=== PATIENT | male | born 1965 | race Caucasian/White ===

== ENCOUNTER → 2018-04-21 11:35 | Outpatient (CLI) | payer OTHER, SELFPAY ==
[2018-04-21 14:15] LABS: Vitamin D,25 Hydroxy 30.1 ng/mL (29.95-100.01)
[2018-04-21 14:22] LABS: AST(SGOT) 23 U/L (15-37); Alanine Aminotransfer ALT/SGPT 57 U/L (16-61); Albumin, Serum 3.8 g/dL (3.2-5.0); Alkaline Phosphatase 72 U/L (45-117); Anion Gap 9 (5-15); BUN 12 mg/dL (7-18); BUN/Creat Ratio 16.1 RATIO (10-20); Calcium,Total 8.5 mg/dL (8.5-10.1); Chloride 107 mmol/L (98-107); Cholesterol 187 mg/dL (200); Creatinine, Serum 0.74 mg/dL (0.70-1.30); EST Glomerular Filtration Rate 116 mL/min (>60); Est Glom Filt Rate - Afr Amer 140 mL/min (>60); Globulin 3.8 g/dL (2.2-4.2); Glucose 109 mg/dL (74-106); High Density Lipoprotein 36 mg/dL; Potassium 4.1 mmol/L (3.5-5.1); Protein, Total 7.6 g/dL (6.4-8.2); Sodium Level 142 mmol/L (136-145); T4 Free Direct 1.55 ng/dL (0.76-1.46); Thyroid Stim Hormone (TSH) 0.56 uIU/mL (0.358-3.74); Triglycerides 189 mg/dL; Very Low Density Lipoprotein 38 mg/dL (5-40)
== END ==
PROVIDERS: Family Provider Family Medicine; PCP Family Medicine; Visit Provider Family Medicine
DX: I10 Essential (primary) hypertension (principal); E03.9 Hypothyroidism, unspecified; E55.9 Vitamin D deficiency, unspecified
CPT/HCPCS: 36415; 80053; 80061; 82306; 84439; 84443

== ENCOUNTER → 2018-10-27 09:50 | Outpatient (CLI) | payer OTHER, SELFPAY ==
--- NOTE | 2018-10-27 09:54 | RAD_ITS ---
STUDY: X-RAY CHEST REASON FOR EXAM: Male, 53 years old. Asthma. TECHNIQUE: Single AP portable view of the chest. COMPARISON: None. FINDINGS: Mild prominent interstitial markings are present. There is no demonstrated pleural abnormality. Normal size heart. Normal mediastinum and roberto carlos. Normal visualized pulmonary arteries. Normal visualized aortic arch and descending thoracic aorta. Normal visualized thoracic spine. Normal visualized ribs, clavicles, and shoulders. There is no demonstrated abnormality of the visualized soft tissue structures of the upper abdomen. RAD/Chest PA and Lateral IMPRESSION: Mild prominent interstitial markings with no evidence of focal airspace disease. Electronically Signed: Dameon Steward DO at 21:34 EST , Service support ,
[2018-10-27 12:35] LABS: Anion Gap 9 (5-15); BUN 9 mg/dL (7-18); BUN/Creat Ratio 11.9 RATIO (10-20); Calcium,Total 8.7 mg/dL (8.5-10.1); Chloride 105 mmol/L (98-107); Cholesterol 184 mg/dL (200); Creatinine, Serum 0.76 mg/dL (0.70-1.30); EST Glomerular Filtration Rate 113 mL/min (>60); Est Glom Filt Rate - Afr Amer 137 mL/min (>60); Glucose 99 mg/dL (74-106); High Density Lipoprotein 38 mg/dL; Potassium 4.2 mmol/L (3.5-5.1); Sodium Level 141 mmol/L (136-145); Triglycerides 202 mg/dL; Very Low Density Lipoprotein 40 mg/dL (5-40)
[2018-10-29 11:35] LABS: Angiotensin Convert Enzyme 16 U/L (14-82)
== END ==
PROVIDERS: Family Provider Family Medicine; PCP Family Medicine; Referring Provider Internal Medicine Pulmonary Disease; Visit Provider Internal Medicine Pulmonary Disease
DX: J45.909 Unspecified asthma, uncomplicated (principal); I10 Essential (primary) hypertension; E78.5 Hyperlipidemia, unspecified; E03.9 Hypothyroidism, unspecified
CPT/HCPCS: 36415; 71046; 80048; 80061; 82164; 84443

== ENCOUNTER → 2019-01-02 08:28 | Outpatient (CLI) | payer OTHER, SELFPAY ==
--- NOTE | 2019-01-02 08:32 | RAD_ITS ---
HISTORY: pain EXAM/TECHNIQUE: XR Spine Cervical 2 or 3 Views: COMPARISON: None. FINDINGS: # of images incl. paperwork: 3 No fracture or dislocation or osseous destruction. Alignment anatomic. Mild degenerative changes. No acute findings in the soft tissues. RAD/Cerv Spine 2 or 3 Views IMPRESSION: No acute findings. Mild degenerative changes. at 1328 Reported and signed by: Gonsalo Alvarado MD Electronically Signed: Gonsalo Alvarado, at 4:36 EDT Tel , Service support ,
--- NOTE | 2019-01-02 08:32 | RAD_ITS ---
HISTORY: Pain. COMPARISON: None FINDINGS: XR Shoulder Min 2 Views: 4 views right. SOFT TISSUES: No acute findings. No radiopaque foreign body. BONES/JOINTS: No acute fracture or subluxation. Normal alignment. Degenerative changes are noted. No destructive changes observed. Calcific tendinopathy rotator cuff. Possible small loose body versus labral calcification inferior to the glenoid. RAD/Shoulder min 2 Views IMPRESSION: Degenerative changes. Calcific tendinopathy rotator cuff. No acute fracture or dislocation. at 0450 Reported and signed by: Gonsalo Alvarado MD Electronically Signed: Gonsalo Alvarado, at 4:49 EDT Tel , Service support ,
== END ==
PROVIDERS: Family Provider Family Medicine; PCP Family Medicine; Referring Provider Orthopaedic Surgery; Visit Provider Orthopaedic Surgery
DX: R20.0 Anesthesia of skin (principal); R20.2 Paresthesia of skin; M25.511 Pain in right shoulder
CPT/HCPCS: 72040; 73030

== ENCOUNTER 2019-02-05 16:00 | Outpatient (RCR) | payer OTHER, SELFPAY ==
--- NOTE | 2019-01-08 16:54 | HP.PTEVAL ---
Patient's Visit Information DARRYL DOS SANTOS is a 53 year old M referred to Physical Therapy by Yemi Grove DO with a diagnosis of R shoulder tendonitis, cervical radiculitis. Date of Evaluation: 01/08/19 Physical Therapist: Markus Jean, DPT, OCS, CSCS - Visit Plan Frequency: 3x /Week Duration: 4-6 Weeks Plan: 3x/week x 4-6, start 2 weeks of nonthermal US to R supratendon, ROM and postural/RC stregnth painfree, monitor activity modfiication, please end with cervical traction manual to mechanical. EG to recheck after two weeks for POC update as needed. - Subjective Findings: R shoulder pain due to calcium build up.. been a problem for 4 years and worsening. Has had injections for the last 3 years adn had one last week.. it did not help. Pain is R shoulder into bicep adn wrist adn into neck. Is 8/10 with movement and 6/10 constantly, been painful for 3 years. Insidious onset. No neck problems lately but doctor says has closure in neck. 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 Sleep is interrupted often finding it hard to get comfy. sleeps on both sides. 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 Shirt on can hurt. Reaching behind not a problem. Reachig up hurts. - Pain R shoulder Pain Intensity (Out of 10): 6 Pain Intensity Range: 4, 10 - Objective Posture is forward head and anterior scap. 3/10 pain at rest in shoulder. c/s AROM ext 45 adn L rotation 65 adn R rotation 60 with pain slightly. - c/s compression test. UE AROM WFL but pain at end of flexiona dn ext rotation adn IR. reflexes bi and tri 2/3. Sensation UE WNL to gross light touch. + HK, + neer on R. - ext rotation lag test, - drop arm. Tender to palpation R supraspinatus tendon max. Repeated c/s protrusion produces neck pain and W neck and NE shoulder. Repeated c/s retraction x 20: Neck pain, 5/10, shoulder NE. Walks and trasnfers I. - Goals Goal 1:: painfree at rest. Goal Time Frame: 4-6 Weeks Goal 2:: Patient sleep without interruption Goal Time Frame: 4-6 Weeks Goal 3:: Patient feel 75% better with pain 2/10 at worst Goal Time Frame: 4-6 Weeks Goal 4:: I approp HEP to minimize future problems. Goal Time Frame: 4-6 Weeks - Rehabilitation Potential Physical Therapy Diagnosis: R shoulder calcific impingement tendonitis. Some cervical involvement. Rehabilitation Potential: Good - Anticipated Interventions Patient/Client Instruction: Educate patient on: Condition, Plan of Care For the Purpose of:: To decrease pain, To improve ability of physical actions for home/community/work/leisure, To improve health of tissue Therapeutic Exercise to Include: Strength training, Flexibilty training, Passive ROM, Active ROM, Scapular Strength/Stabilization For the Purpose of:: To decrease pain, To improve nutrient delivery to tissue, To improve muscle performance and motor function, To increase tolerance to activity/condition/position, To improve ability of physical actions for home/community/work/leisure Manual Therapy Techniques to Include: Mobilization, Passive ROM For the Purpose of:: To decrease pain, To improve nutrient delivery to tissue Cryotherapy (ice pack, ice massage): Yes Ultrasound (thermal/non thermal): Yes - nonthermal supraspinatus Intermittent cervical traction: Yes For the Purpose of:: To decrease swelling/inflammation, To improve nutrient delivery to tissue Thank you for the opportunity to evaluate your patient. For Medicare and Medicare HMO plans, please review the plan of care and approve it. It will need to be FAXED BACK to us at [phone] for Medicare purposes. For Medicare only, by signing this I certify the plan of care. Please let me know if there are questions or concerns regarding this plan of care. Physician Signature: Date:
--- NOTE | 2019-02-05 16:19 | HP.PTDCSUM ---
HP - PT D/C Summary It has been my pleasure to treat DARRYL DOS SANTOS under orders from Yemi Grove DO, for the diagnosis of R shoulder tendonitis, cervical radiculitis for a total of 7 visit(s). Discharge Date: 02/05/19 Please see the following information for a summary of their discharge status. - Subjective Subjective: Nothing is helping. UBE, pendulum, US all bothered him. Es helped with muscle s in UT but can still get to 10/10 with LLA abduction immediately whcih ingers. That pain is ant shoulder and biceps. Been trying to obey precautions with driving and doing neck retraction exercises and shrugs which don't bother him but doesn't help his shoulder either. Sleep is interrupted. Injection did not help him. MRI maybe next step. - Pain R shoulder Pain Intensity (Out of 10): 5 - Overall Improvement % Improvement: 0 - Objective Objective/Function: Full cervical ROM without pain or asymmetries. L shoulder AROM fulla nd painfree. R shouolder very painful to otuch at supraspinatus . Painful with resisted external rotation R shoulder immediatelya nd hard to contract at all. Unable to resist flexion or abd LLA either. PROM painful at 130 flexion and 70 ext rotation. - external rotation lag but + R drop arm test today. Overall patient shoulder no better despite appropriate precautions and ROM/modalities/Rest attempts. UT seems better but shoulder not improving . RECOMMEND BACK TO DOCTOR FOR NEXT STEP(mri). - Goals Goal 1:: painfree at rest. Goal Progress: Not Progressing Goal 2:: Patient sleep without interruption Goal Progress: Not Progressing Goal 3:: Patient feel 75% better with pain 2/10 at worst Goal Progress: Not Progressing Goal 4:: I approp HEP to minimize future problems. Goal Progress: no - Plan Plan: d/c - D/C Information Discharge Comments: bACK TO DOCTOR FOR NEXT STEP due to lack of improvement. If there are questions or concerns regarding this patient's physical therapy, please feel free to call me at [phone]. Thank you for the referral of this patient. Sincerely, Markus Jean, DPT, OCS, CSCS
== END 2019-02-05 19:00 | disposition home or self-care (01) ==
LOC: PT 16:00
PROVIDERS: Family Provider Family Medicine; PCP Family Medicine; Referring Provider Orthopaedic Surgery; Visit Provider Orthopaedic Surgery
DX: M75.31 Calcific tendinitis of right shoulder (principal); M54.12 Radiculopathy, cervical region
CPT/HCPCS: 97014; 97035; 97110; 97140; 97162; 97530; G0283

== ENCOUNTER → 2019-02-25 06:33 | Outpatient (CLI) | payer OTHER, SELFPAY ==
--- NOTE | 2019-02-25 06:35 | MRI_ITS ---
STUDY: MRI RIGHT SHOULDER REASON FOR EXAM: Right shoulder pain and limited range of motion for 3 years. TECHNIQUE: Standardized fat and water weighted pulse sequences were obtained in all 3 orthogonal planes. COMPARISON: Radiographs 01/02/2019. FINDINGS: There is a signal void in the distal anterior supraspinatus tendon measuring 1.3 cm in length with mild adjacent inflammation (T2 coronal image 16) consistent with calcific tendinitis. There is no discrete tear of the supraspinatus tendon. Normal infraspinatus tendon. Normal subscapularis tendon. Normal teres minor tendon. Normal supraspinatus muscle. Normal infraspinatus muscle. Normal subscapularis muscle. Normal teres minor muscle. Normal glenohumeral articulation. There is minimal cystic change of the posterior aspect of the humeral head. Normal biceps labral complex. Normal intracapsular long biceps tendon. Normal labrum. Normal capsulo- ligamentous complex. There is acromioclavicular arthrosis with hypertrophic changes effacing the subacromial fat (T2 sagittal images 15, 16). There is a Type II morphology (curved), with a neutral orientation. There is a trace of subacromial-subdeltoid bursal fluid. Normal visualized coracohumeral and coracoacromial ligaments. Normal deltoid muscle. Normal trapezius muscle. MRI/Upper Ext Joint Only(Routine) IMPRESSION: Supraspinatus calcific tendinitis. Acromioclavicular arthrosis. Electronically Signed: Calvin Peña MD at 8:35 EDT Tel , Service support ,
== END ==
PROVIDERS: Family Provider Family Medicine; PCP Family Medicine; Referring Provider Orthopaedic Surgery; Visit Provider Orthopaedic Surgery
DX: M75.31 Calcific tendinitis of right shoulder (principal)
CPT/HCPCS: 73221

== ENCOUNTER 2019-04-14 10:02 | Day surgery (SDC) | payer OTHER, SELFPAY ==
[2019-04-03 08:15] VITALS: BMI 33.5
--- NOTE | 2019-04-09 10:40 | EKG12_ITS ---
Test Reason : PRE OP Blood Pressure : / mmHG Vent. Rate : 055 BPM Atrial Rate : 055 BPM P-R Int : 166 ms QRS Dur : 096 ms QT Int : 422 ms P-R-T Axes : 058 071 087 degrees QTc Int : 403 ms Sinus bradycardia Otherwise normal ECG Confirmed by FALLON BUCIO, HERMELINDO ([id number]), photography editor ARIAN MILLAN ([id number]) on 04/13/2019 2:02:07 PM Referred By: Yemi Grove Confirmed By:HERMELINDO LEHMAN MD
[2019-04-09 11:54] LABS: Thyroid Stim Hormone (TSH) 0.68 uIU/mL (0.358-3.74)
[2019-04-14] VITALS (10 sets, daily range): BP systolic 118–148; BP diastolic 55–84; PULSE 53–80; RESP 16–18; TEMP 36.4–37; O2SAT 64–97; BMI 32.8
[2019-04-14] MEDS: Cefazolin 2 GM in 0.9% Normal Saline 100 ML IV (12:54)
[2019-04-14] MEDS: Epinephrine (1 mg/ml) 1 MG/ML VIAL (13:00)
[2019-04-14] MEDS: Bupiv/Epi 0.5% Mpf 30 ML Vial (14:30)
[2019-04-14] MEDS: Bupivacaine Mpf 0.5% 30 ML VIAL (14:30)
[2019-04-14] MEDS: Morphine 4 MG/ML Syringe (14:30)
--- NOTE | 2019-04-14 15:05 | PCM.OPRPT ---
Report of Operation Date of Procedure: 04/14/19 Description of Surgical Findings:: Preoperative diagnosis: Right shoulder calcific tendinitis impingement Postoperative diagnosis: Degenerative anterior labral tearing, impingement, calcific tendonitis Procedure: Arthroscopic labral debridement subacromial decompression decompression of calcific deposit with rotator cuff repair Implants: Arthrex 4.75 bio composite swivel lock Anesthesia: General with interscalane block EBL: 25 cc Complications none Indication for procedure: This is a 53-year-old male patient with ongoing shoulder pain who has failed conservative treatment who did have MRI evidence of calcific tendinitis and impingement, risks benefits and alternatives of the procedure were reviewed including risk of bleeding infection nerve artery tissue damage need for further surgery continued pain postoperative stiffness and need for postoperative physical therapy and continued pain and retear. Procedure: Patient was met in the preoperative holding area the operative extremity was identified by both the patient and the physician and was marked. Patient was met by anesthesia and brought back to the operating room on a wheeled cart. Patient was transferred to the operating table in the supine position. Anesthesia was started. Patient was then positioned in the beach chair configuration. Bony prominences were well-padded. The patient was prepped and draped in the usual sterile fashion. A timeout was called to ensure the proper patient procedure and extremity were being contemplated. Anatomic landmarks were palpated and marked with a marking pen. A 0.25% Marcaine with epinephrine was injected into the planned portal sites. An 11 blade scalpel was used to make a stab incision in the posterior lateral portal. Arthroscope was inserted into the glenohumeral space with ease. Inflow and outflow tubes were attached and arthroscopic visualization began. An anterior portal was established with an 18-gauge spinal needle. Followed by 11 blade scalpel and a probe there was noted to be degenerative labral tearing anteriorly which was debrided with a shaver the biceps tendon had no pathology there was some fraying of the undersurface of the anterior supraspinatus but no full-thickness tear there was no loose bodies in the axillary recess and the remainder of the cartilage and labrum were intact. The arthroscope was then inserted into the subacromial space there is noted to be significant thickened bursal tissue which was excised there is also noted to be anterior acromial spurring which was removed with a bur. The rotator cuff was evaluated and the anterior supraspinatus was perforated with an 18-gauge spinal needle until the calcific deposit was localized I attempted to express the material through poke holes of the spinal needle however the deposit required a small incision and the calcific deposit was then removed once it was expressed there was a void and it was felt a single anchor repair would be needed horizontal mattress type repair was performed with fiber tape and a swivel lock. Excellent repair was achieved. The wound was thoroughly irrigated through the scope followed by a subacromial injection with 4 mg of morphine and 8 cc of 0.5% Marcaine plain. Suture portals were closed with 3-0 Monocryl stitches followed by Xeroform 4 x 4 ABD and a Ioban dressing. A abduction sling and pillow was placed. Anesthesia was reversed and patient tolerated the procedure well was and was transferred to the PACU. All counts were correct patient will follow-up in the office in 2 weeks . Patient may begin active elbow and wrist range of motion and pendulums of the shoulder but no active shoulder motion, dressing is to be left on for 72 hours before being changed daily after showering
--- NOTE | 2019-04-14 15:11 | PCM.DC.ORTHO ---
Discharge Diet: No Restrictions Call your doctor if you observe: Fever of 101 or Higher, Shortness of breath, Chest pain Additional Instructions: Keep iced the minutes on 15 minutes off elevate right upper extremity with pillows encourage finger and elbow range of motion. Begin pendulum exercises as well as passive range of motion at least 3 times per day but may do more if so inclined. Active assisted with broom handle or partner is acceptable. But no active lifting and no resistance left upper extremity. May remove dressing 72 hours postoperatively and begin showering immediately at that point and daily. May replace with Band-Aids over incisions if needed. There are Steri-Strips on the skin which should be left on until they fall off on their own. If not removed within 2 weeks may remove them. Call with any questions or concerns Allergies/Adverse Reactions: Allergies No Known Allergies Allergy (Verified 04/14/19 10:25) Medications to take at Discharge Ascorbic Acid [Vitamin C] 1,000 mg PO DAILY@0800 10/26/14 Atorvastatin Calcium [Lipitor] 20 mg PO QHS 10/26/14 Budesonide Nasal [Rhinocort Aqua] 1 spray NASAL DAILY 10/26/14 Fenofibrate [Tricor] 145 mg PO DAILY 10/26/14 Levothyroxine [Synthroid] 250 mcg PO DAILY 10/26/14 [place]-3 Fatty Acids/Fish Oil [[place] 3 Fish Oil Softgel] 1 ea PO DAILY 10/26/14 Potassium (Otc) [Potassium OTC] 99 mg PO DAILY 10/26/14 Ramipril [Altace] 2.5 mg PO PRN PRN 10/26/14 Tadalafil [Cialis] 10 mg PO PRN PRN 10/26/14 Zinc 30 mg PO DAILY 10/26/14 Albuterol IH (ProAir) [Proair Hfa (SP)Vent Pts] 1 - 2 puff INHALATION Q6H PRN PRN 04/08/19 Ergocalciferol [Vitamin D] 50,000 unit PO Q7D 04/08/19 Fluticasone/Vilanterol [Breo Ellipta 200-25 Mcg INH] 1 ea IH DAILY 04/08/19 Acetaminophen [Tylenol Extra Strength] 1,000 mg PO Q6H PRN PRN #100 tab 04/14/19 Oxycodone [Oxyir] 5 - 10 mg PO Q4H PRN PRN 7 Days #60 tablet 04/14/19 The following prescriptions were given: Oxycodone [Oxyir] 5 - 10 mg PO Q4H PRN PRN 7 Days #60 tablet PRN Reason: Pain Transmission Status: Sent to [facility] Acetaminophen [Tylenol Extra Strength] 1,000 mg PO Q6H PRN PRN #100 tab PRN Reason: Pain Transmission Status: Pending to [facility] Orders to be completed after discharge: 12 Lead EKG [CVS] Time Frame: 04/08/19, Facility: [facility], Location: Cardiovascular Services Thyroid Stim Hormone (TSH) Time Frame: 04/08/19, Facility: [facility], Location: Laboratory Primary Care Physician: Stephen Arreaga MD [Primary Care Provider] - Test Results: Test results from this visit will be discussed in further detail at your follow-up appointment, if applicable. Please Follow Up With: Yemi Grove DO - 2 weeks When: Or when you return from vacation, please call to schedule
--- NOTE | 2019-04-24 06:25 | PCM.HP.BLA ---
History and Physical Date of Admission: 04/14/19 MR#: [id number] Acct: [id number] Name: DARRYL DOS SANTOS Rep #: [id number] : 1965 Provider: DORY Cabello Age/Sex: 53/M Location: [facility] Status: Signed Intake Vital Signs 04/03/19 Body Mass Index (BMI) 33.5 Intake Visit Reasons: RIGHT SHOULDER Allergies No Known Allergies Allergy (Verified 10/26/14 08:29) PFSH Surgical History (Updated 01/02/19 @ 08:36 by Susanne Parker) H/O vasectomy (Acute) H/O vein stripping (Acute) Hx of tonsillectomy (Acute) Social History (Updated 04/03/19 @ 08:53 by DORY Lopez) Smoking Status: Never smoker HPI RIGHT SHOULDER: Details: Parts of this documentation were recorded by a scribe, this documentation accurately reflects the service provided and the decisions made by meYunier PA 04/03/19 0811. DARRYL DOS SANTOS is a 53 year old M here today for right shoulder. Patient states his pain has worsened some but is still bearable. Has been limiting his ADLs. Patient is here to sign consent for surgery for arthroscopic procedure for decompression debridement of calcific deposit with possible RTC repair, subacromial decompression and surgery as indicated. Patient states there has been no change in movement, strength, or appearance of the shoulder since his recent exam. ROS Const Reports system reviewed and no additional complaints, except as docu Eyes Reports system reviewed and no additional complaints, except as docu ENT Reports system reviewed and no additional complaints, except as docu Card Reports system reviewed and no additional complaints, except as docu Resp Reports system reviewed and no additional complaints, except as docu GI Reports system reviewed and no additional complaints, except as docu Reports system reviewed and no additional complaints, except as docu Musc Reports system reviewed and no additional complaints, except as docu, Reports as per HPI Skin/Breast Reports system reviewed and no additional complaints, except as docu Neuro Yes system reviewed and no additional complaints, except as docu Psych Reports system reviewed and no additional complaints, except as docu Endo Reports system reviewed and no additional complaints, except as docu Yaya/Lymph Reports system reviewed and no additional complaints, except as docu Aller/Immun Reports system reviewed and no additional complaints, except as docu Ortho Exam Right Shoulder Skin/Wound: No swelling Testing: Positive AROM-Forward Elevation 0-180 (Discomfort) and AROM-External Rotation at side 0-60 Assessment & Plan Problems 1. Calcific tendinitis of right shoulder M75.31 2. Impingement syndrome of right shoulder M75.41 Plan Patient presented to the office today to sign surgical consent for right shoulder arthroscopy for decompression/debridement of calcific tendinitis, subacromial decompression, possible rotator cuff repair and repair as indicated. The risks and benefits of surgery were explained to patient who verbally understands these. Consent was signed in office today and all of his questions were answered. Patient was given surgical scrub to be used the night before and the morning of surgery starting the neck working under the armpit down to the end of the extremity. We discussed preanesthesia testing who will be contacting him via telephone first. He will not know the time of his surgery until the day before. He is to stop all anti-inflammatories 1 week prior to procedure. Can continue with his other daily medications. Patient is to notify the office if he has any other questions or concerns in the meantime. This note was generated with [employer] dictation software. It may contain incorrect words, spelling, and punctuation that were not noted in checking the note before signing. Coding Level of Care Code Off vis,est,level 1 Diagnoses Calcific tendinitis of right shoulder M75.31 Impingement syndrome of right shoulder M75.41 04/03/19 0853 <Electronically signed by Yunier CONNORS> Date Yunier CONNORS Cosigner Signature: Date (if applicable) CC: ~ I have re-examined the patient. There are no clinical changes since date of exam
== END 2019-04-14 17:28 | disposition home or self-care (01) ==
LOC: SDC 10:07 → AC 10:08
PROVIDERS: Family Provider Family Medicine; PCP Family Medicine; Referring Provider Orthopaedic Surgery; Visit Provider Orthopaedic Surgery
PROC: (CPT 29827; principal; 2019-04-14 11:15)
DX: M75.31 Calcific tendinitis of right shoulder (principal); M75.41 Impingement syndrome of right shoulder; M75.101 Unspecified rotator cuff tear or rupture of right shoulder, not specified as traumatic; E78.00 Pure hypercholesterolemia, unspecified; I10 Essential (primary) hypertension; J45.909 Unspecified asthma, uncomplicated; E06.9 Thyroiditis, unspecified; Z79.899 Other long term (current) drug therapy
CPT/HCPCS: 01630; 29826; 29827; 64415; 36415; 84443; 93005; J7030; J7120; J2405

== ENCOUNTER → 2019-05-22 08:55 | Outpatient (CLI) | payer OTHER, SELFPAY ==
[2019-05-22 08:36] VITALS: BMI 32.8
[2019-05-22 10:57] LABS: T4 Free Direct 1.35 ng/dL (0.76-1.46); Thyroid Stim Hormone (TSH) 0.65 uIU/mL (0.358-3.74)
== END ==
PROVIDERS: Family Provider Family Medicine; PCP Family Medicine; Referring Provider Family Medicine; Visit Provider Family Medicine
DX: E03.9 Hypothyroidism, unspecified (principal)
CPT/HCPCS: 36415; 84439; 84443

== ENCOUNTER → 2019-06-26 07:57 | Outpatient (CLI) | payer OTHER, SELFPAY ==
[2019-05-22 08:36] VITALS: BMI 32.8
--- NOTE | 2019-06-26 08:00 | CT_ITS ---
STUDY: CT CHEST WITHOUT CONTRAST REASON FOR EXAM: Male, 54 years old. Asthma. Shortness of breath. Elevation of the right hemidiaphragm. RADIATION DOSAGE (If Supplied By Facility): CTDIvol = ( 19.66 ) mGy, DLP = ( 761.69 ) mGycm TECHNIQUE: Transaxial imaging was performed without the administration of intravenous contrast material. Individualized dose optimization techniques were used for this CT. COMPARISON: None. FINDINGS: Small benign-appearing bilateral axillary lymph nodes. There is elevation of the right hemidiaphragm. Mild increased linear markings at the right lung base suggestive of malignancy atelectasis and/or scarring. There is no demonstrated pleural abnormality. Normal heart and pericardium. There are multiple small lymph nodes within the mediastinum, which are normal in size and morphology most compatible with reactive lymph hyperplasia. Normal hilar regions. Normal unenhanced pulmonary arteries. Normal aorta arch and descending thoracic aorta. There are multi-level degenerative changes of the thoracic spine. There is no demonstrated abnormality of the visualized upper abdomen. CT/Chest without Contrast IMPRESSION: There is elevation of the right hemidiaphragm. Mild degree of increased linear markings at the right lung base suggestive of linear atelectasis and/or scarring. Electronically Signed: Cruz Honeycutt, at 14:04 EDT , Service support ,
--- NOTE | 2019-06-26 08:00 | RAD_ITS ---
STUDY: SNIFF TEST. REASON FOR EXAM: Male, 54 years old. Elevation of the right hemidiaphragm. FLUOROSCOPY TIME (if supplied): (0:18) minutes/seconds TECHNIQUE: Inspiration expiration views were obtained. COMPARISON: None. FINDINGS: There is evidence of elevation of the right hemidiaphragm. Normal diaphragmatic movement. RAD/Fluoroscopy 1 Hr or Less IMPRESSION: Normal diaphragmatic movement during inspiration and expiration. Electronically Signed: Cruz Honeycutt, at 13:59 EDT , Service support ,
== END ==
PROVIDERS: Family Provider Family Medicine; PCP Family Medicine; Referring Provider Internal Medicine Pulmonary Disease; Visit Provider Internal Medicine Pulmonary Disease
DX: J98.6 Disorders of diaphragm (principal); J45.909 Unspecified asthma, uncomplicated
CPT/HCPCS: 71250; 76000

== ENCOUNTER 2019-08-05 11:30 | Outpatient (RCR) | payer OTHER, SELFPAY ==
[2019-05-22 08:36] VITALS: BMI 32.8
--- NOTE | 2019-06-01 14:54 | HP.PTEVAL_ITS ---
Patient's Visit Information DARRYL DOS SANTOS is a 54 year old M referred to Physical Therapy by Yemi Grove DO with a diagnosis of Rotator Cuff Repair 04/14/19. Date of Evaluation: 06/01/19 Physical Therapist: Evi Maldonado DPT - Visit Plan Frequency: 2-3x /Week Duration: 4 Weeks Plan: RTC repair 04/14 focus on ROM and strength. 06/01/19 HEP -Cane Flexion, adbuction, IR, ER, sweep. -Wall wash - Subjective Findings: Right shoulder- 4 years- insidious onset. Surgery 04/14/[address] Conway. Sling for 4 weeks and was told not to move his arms- no problems sleeping. Worst: 7/10 Agg: moving to quickly Best: 0/10 Most of the time. Eases: instantly goes away when he brings it back to his body. Describes the pain as jabbing and its located in the deltoid most into abduction. No radiating pain- no N/T. 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 Saw Dr. Conway who did not release him back to work. RTW date is not until Jul 06. 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 Wants to get back ULICES. Sleep: not disturbed. Right hand dominate. Able to perform all ADL's. PMHx/Meds: none since surgery. - Objective Posture: forward head & RS; corrected when given v/c & t/c, but was unable to maintain. No guarding of the R shoulder. Palpation: NTP. AROM: finger dexterity/wrist/elbow WFL, Shoulder flexion 160/abd 150/ IR to belt line/ ER 60. PROM: shoulde flexion 165/abd. Full/ IR 50/ER Full. Strength: Isometric 4/5 - Goals Goal 1:: Pt. will be I with HEP & progression Goal Time Frame: 4-6 Weeks Goal 2:: Pt. will demo full aROM of r shoulder Goal Time Frame: 4-6 Weeks Goal 3:: Pt. will maintain proper posture throughout tx session to demo to increase scapular strength/stabilization Goal Time Frame: 4-6 Weeks Goal 4:: Pt. will return to work with 0/10 pain Goal Time Frame: 4-6 Weeks - Rehabilitation Potential Physical Therapy Diagnosis: Pt. presents s/p R rotatoc cuff repair 04/14/19. demos decrease ROM, strength, & functional mobility leading to decreased particiaption in aDLs & work-related tasks Rehabilitation Potential: Good - Anticipated Interventions Patient/Client Instruction: Educate patient on: Benefits of Fitness Program Therapeutic Exercise to Include: Strength training, Body mechanics, Postural training, Flexibilty training, Passive ROM, Active ROM, Scapular Strength/Stabilization For the Purpose of:: To improve muscle performance and motor function Cryotherapy (ice pack, ice massage): Yes Thermo therapy (hot pack): Yes For the Purpose of:: To decrease pain Thank you for the opportunity to evaluate your patient. For Medicare and Medicare HMO plans, please review the plan of care and approve it. It will need to be FAXED BACK to us at [phone] for Medicare purposes. For Medicare only, by signing this I certify the plan of care. Please let me know if there are questions or concerns regarding this plan of care. Physician Signatur e: Date:
--- NOTE | 2019-07-02 16:37 | HP.PTREVAL ---
Yemi Grove, DO, It has been my pleasure to treat DARRYL DOS SANTOS over the last 11 visits for Rotator Cuff Repair 04/14/19. Please see the progress note below for an update on the physical therapy plan of care! Subjective: Pt. cont. to report issues with reaching behind his back and some discomfort with ext. rot. exercises in therapy. Has been consisten w/ HEP. Objective/Function: Posture: forward head & RS; corrected when given v/c & t/c, but was unable to maintain. No guarding of the R shoulder. Palpation: NTP. AROM: finger dexterity/wrist/elbow WFL, Shoulder Flex/Abd. WFL/ IR to belt line/ ER 60. PROM: shoulder flexion WFL abd. Full/ IR 50/ER Full. Strength: Shoulder Isometric 01/16. [ End ] Plan Plan: Right RTC repair 04/14 - focus on ROM and strength. 07/02/19 - 3 more weeks to further focus on ROM and strength Goals Goal 1:: Pt. will be I with HEP & progression Goal Time Frame: 4-6 Weeks Goal 2:: Pt. will demo full aROM of r shoulder Goal Time Frame: 4-6 Weeks Goal 3:: Pt. will maintain proper posture throughout tx session to demo to increase scapular strength/stabilization Goal Time Frame: 4-6 Weeks Goal 4:: Pt. will return to work with 0/10 pain Goal Time Frame: 4-6 Weeks Anticipated Interventions Patient/Client Instruction: Educate patient on: Benefits of Fitness Program Therapeutic Exercise to Include: Strength training, Body mechanics, Postural training, Flexibilty training, Passive ROM, Active ROM, Scapular Strength/Stabilization For the Purpose of:: To improve muscle performance and motor function Cryotherapy (ice pack, ice massage): Yes Thermo therapy (hot pack): Yes For the Purpose of:: To decrease pain Please do not hesitate to contact me at [phone] by phone or if you have questions or concerns regarding this new plan of care! Sincerely, Evi Maldonado DPT
--- NOTE | 2019-10-08 10:55 | HP.PT.NRP ---
HP - Discharge Summary (1) - Patient Information DARRYL DOS SANTOS was seen in my office for initial evaluation on 06/01/19. The following Plan of Care was established for this patient: Initial Frequency: 2-3x /Week Initial Duration: 4 Weeks - Anticipated Interventions Patient/Client Instruction: Educate patient on: Benefits of Fitness Program Therapeutic Exercise to Include: Strength training, Body mechanics, Postural training, Flexibilty training, Passive ROM, Active ROM, Scapular Strength/Stabilization For the Purpose of:: To improve muscle performance and motor function Cryotherapy (ice pack, ice massage): Yes Thermo therapy (hot pack): Yes For the Purpose of:: To decrease pain This patient was last seen in our office . Pertinent comments regarding their Physical therapy will appear below: At this point I will be discontinuing this patient from physical therapy. I would be happy to see this patient again in the future if found appropriate by the physician. Thank you! Evi Maldonado DPT
== END 2019-08-05 19:00 | disposition home or self-care (01) ==
LOC: PT 11:30
PROVIDERS: Family Provider Family Medicine; PCP Family Medicine; Referring Provider Orthopaedic Surgery; Visit Provider Orthopaedic Surgery
DX: Z98.890 Other specified postprocedural states (principal)
CPT/HCPCS: 97110; 97161; 97164

== ENCOUNTER → 2019-10-30 08:15 | Outpatient (CLI) | payer OTHER, SELFPAY ==
[2019-07-03 07:43] VITALS: BMI 32.8
[2019-10-30 10:24] LABS: Vitamin D,25 Hydroxy 31.6 ng/mL (29.95-100.01)
[2019-10-30 10:29] LABS: AST(SGOT) 24 U/L (15-37); Alanine Aminotransfer ALT/SGPT 54 U/L (16-61); Albumin, Serum 3.9 g/dL (3.2-5.0); Alkaline Phosphatase 67 U/L (45-117); Anion Gap 6 (5-15); BUN 18 mg/dL (7-18); Calcium,Total 9.2 mg/dL (8.5-10.1); Chloride 108 mmol/L (98-107); Creatinine, Serum 1.06 mg/dL (0.70-1.30); EST Glomerular Filtration Rate 77 mL/min (>60); Est Glom Filt Rate - Afr Amer 93 mL/min (>60); Glucose 116 mg/dL (74-106); Protein, Total 7.9 g/dL (6.4-8.2); Sodium Level 139 mmol/L (136-145)
== END ==
PROVIDERS: PCP Family Medicine; Referring Provider Family Medicine; Visit Provider Family Medicine
DX: I10 Essential (primary) hypertension (principal); E03.9 Hypothyroidism, unspecified; E55.9 Vitamin D deficiency, unspecified
CPT/HCPCS: 80053; 82306; 84443

== ENCOUNTER → 2020-02-29 08:09 | Outpatient (CLI) | payer OTHER, SELFPAY ==
[2019-07-03 07:43] VITALS: BMI 32.8
[2020-02-29 10:30] LABS: PSA,Total- Diagnostic 2.29 ng/mL (0.0-4.0); T4 Free Direct 1.31 ng/dL (0.76-1.46); Thyroid Stim Hormone (TSH) 0.97 uIU/mL (0.358-3.74)
[2020-02-29 10:31] LABS: Microalbumin,Random Urine 15.1 mg/L (NO RANGE EST.)
== END ==
PROVIDERS: PCP Family Medicine; Referring Provider Family Medicine; Visit Provider Family Medicine
DX: Z00.00 Encounter for general adult medical examination without abnormal findings (principal); Z12.5 Encounter for screening for malignant neoplasm of prostate; E03.9 Hypothyroidism, unspecified
CPT/HCPCS: 36415; 82043; 84153; 84439; 84443

== ENCOUNTER → 2020-04-08 10:09 | Outpatient (CLI) | payer OTHER, SELFPAY ==
[2019-07-03 07:43] VITALS: BMI 32.8
--- NOTE | 2020-04-08 10:10 | RAD_ITS ---
STUDY: X-RAY - PELVIS AND RIGHT HIP REASON FOR EXAM: Male, 54 years old. PAIN IN RIGHT HIP. NO KNOWN INJURY. TECHNIQUE: 4 views of the pelvis and hip. COMPARISON: None. FINDINGS: There is a non-specific bowel gas pattern. Normal visualized soft tissue structures. Normal bilateral iliac wings, sacroiliac joints and visualized sacrum. Normal bilateral superior and inferior pubic rami. Normal pubic symphysis. Normal bilateral ischial tuberosities. Normal visualized femoral head. Normal acetabulum. There is mild articular joint space narrowing of the hip. RAD/HIP, UNI W/ Pelvis 2-3 Views IMPRESSION: Mild arthrosis, no demonstrated fracture or suspicious osseous lesion Electronically Signed: Santo Peterson MD at 10:56 EDT , Service support ,
== END ==
PROVIDERS: Referring Provider Orthopaedic Surgery; Visit Provider Orthopaedic Surgery
DX: M16.11 Unilateral primary osteoarthritis, right hip (principal)
CPT/HCPCS: 73502

== ENCOUNTER → 2020-12-05 09:48 | Outpatient (CLI) | payer OTHER, SELFPAY ==
[2020-04-08 10:37] VITALS: BMI 32.8
[2020-12-05 13:14] LABS: Vitamin D,25 Hydroxy 56.7 ng/mL
[2020-12-05 13:17] LABS: AST(SGOT) 24 U/L (15-37); Alanine Aminotransfer ALT/SGPT 62 U/L (16-61); Albumin, Serum 3.8 g/dL (3.2-5.0); Alkaline Phosphatase 70 U/L (45-117); Anion Gap 6 (5-15); BUN 16 mg/dL (7-18); Calcium,Total 9.1 mg/dL (8.5-10.1); Chloride 109 mmol/L (98-107); Cholesterol 189 mg/dL (200); Creatinine, Serum 0.84 mg/dL (0.70-1.30); EST Glomerular Filtration Rate 100 mL/min (>60); Est Glom Filt Rate - Afr Amer 120 mL/min (>60); Glucose 113 mg/dL (74-106); High Density Lipoprotein 39 mg/dL; PSA,Total - Annual Screen 2.79 ng/mL (0.00-4.00); Potassium 4.1 mmol/L (3.5-5.1); Protein, Total 7.8 g/dL (6.4-8.2); Sodium Level 142 mmol/L (136-145); Thyroid Stim Hormone (TSH) 0.29 uIU/mL (0.358-3.74); Triglycerides 178 mg/dL; Very Low Density Lipoprotein 36 mg/dL (5-40)
[2020-12-05 17:26] LABS: T4 Free Direct 1.47 ng/dL (0.76-1.46)
== END ==
PROVIDERS: PCP Family Medicine; Referring Provider Family Medicine; Visit Provider Family Medicine
DX: E78.00 Pure hypercholesterolemia, unspecified (principal); E03.9 Hypothyroidism, unspecified; E55.9 Vitamin D deficiency, unspecified; Z12.5 Encounter for screening for malignant neoplasm of prostate
CPT/HCPCS: 36415; 80053; 80061; 82306; 84153; 84439; 84443; G0103

== ENCOUNTER → 2021-03-14 10:15 | Outpatient (CLI) | payer OTHER, SELFPAY ==
[2020-04-08 10:37] VITALS: BMI 32.8
[2021-03-14 12:48] LABS: T4 Free Direct 0.99 ng/dL (0.76-1.46); Thyroid Stim Hormone (TSH) 8.08 uIU/mL (0.358-3.74)
== END ==
PROVIDERS: PCP Family Medicine; Referring Provider Family Medicine; Visit Provider Family Medicine
DX: E03.9 Hypothyroidism, unspecified (principal)
CPT/HCPCS: 36415; 84439; 84443

== ENCOUNTER → 2021-05-08 08:58 | Outpatient (CLI) | payer OTHER, SELFPAY ==
[2020-04-08 10:37] VITALS: BMI 32.8
[2021-05-08 11:22] LABS: T4 Free Direct 1.28 ng/dL (0.76-1.46); Thyroid Stim Hormone (TSH) 1.16 uIU/mL (0.358-3.74)
== END ==
PROVIDERS: PCP Family Medicine; Referring Provider Family Medicine; Visit Provider Family Medicine
DX: E03.9 Hypothyroidism, unspecified (principal)
CPT/HCPCS: 36415; 84439; 84443

== ENCOUNTER → 2021-09-28 | Outpatient (CLI) | payer OTHER, SELFPAY | END | disposition home or self-care (01) | LOC: LABSPEC 10-23 13:20 | PROVIDERS: PCP Family Medicine; Visit Provider Family Medicine | DX: U07.1 COVID-19 (principal) | CPT/HCPCS: 87635; U0005; U0003 ==

== ENCOUNTER → 2021-09-29 14:46 | Outpatient (CLI) | payer OTHER, SELFPAY ==
--- NOTE | 2021-09-29 14:59 | RAD_ITS ---
EXAM: XR CHEST, 2 VIEWS CLINICAL INDICATION: COVID19 TECHNIQUE: Frontal and lateral views of the chest. This report was created using [employer] report generation technology. COMPARISON: None. FINDINGS: LUNGS AND PLEURAL SPACES: Unremarkable. No consolidation or edema. No pneumothorax. No effusion. HEART: Unremarkable. Cardiac silhouette not enlarged. MEDIASTINUM: Central airways and mediastinal contour are unremarkable. BONES/JOINTS: Degenerative findings in the thoracic spine. SOFT TISSUES: Unremarkable. RAD/Chest PA and Lateral IMPRESSION: No acute findings in the chest. Electronically Signed: Juan Bob MD at 21:31 EST , Service support ,
== END ==
PROVIDERS: PCP Family Medicine; Referring Provider Internal Medicine Pulmonary Disease; Visit Provider Internal Medicine Pulmonary Disease
DX: U07.1 COVID-19 (principal)
CPT/HCPCS: 71046

== ENCOUNTER 2021-09-30 13:54 | Outpatient (CLI) | payer OTHER, SELFPAY ==
[2021-09-30 14:14] VITALS: BP 155/88; PULSE 72; RESP 16; TEMP 37; O2SAT 95; BMI 31.2
[2021-09-30] MEDS: 0.9% Saline Lock 10 ML Syringe IV (14:16)
[2021-09-30 14:51] VITALS: BP 142/83; PULSE 66; RESP 16; TEMP 36.4; O2SAT 92
[2021-09-30 15:42] VITALS: BP 150/79; PULSE 63; RESP 16; TEMP 36.6; O2SAT 94
== END 2021-09-30 15:48 | disposition home or self-care (01) ==
LOC: MS3OUT 13:55 → MS3 13:55
PROVIDERS: PCP Family Medicine; Referring Provider Nurse Practitioner Acute Care; Visit Provider Nurse Practitioner Acute Care
DX: U07.1 COVID-19 (principal)
CPT/HCPCS: J7050; M0245; Q0245; A4216

== ENCOUNTER 2021-10-31 16:56 | Outpatient (CLI) | payer OTHER, SELFPAY | END 2021-10-31 23:59 | disposition short-term general hospital (02) | LOC: LABSPEC 16:56 | PROVIDERS: PCP Family Medicine; Referring Provider Family Medicine; Visit Provider Family Medicine | DX: R39.15 Urgency of urination (principal) | CPT/HCPCS: 87086; 87088 ==

== ENCOUNTER 2021-11-28 09:04 | Outpatient (CLI) | payer OTHER, SELFPAY ==
[2021-11-28 10:41] LABS: PSA,Total - Annual Screen 2.97 ng/mL (0.00-4.00)
== END 2021-11-28 23:59 | disposition home or self-care (01) ==
LOC: LAB 09:07
PROVIDERS: PCP Family Medicine; Referring Provider Registered Nurse; Visit Provider Registered Nurse
DX: Z12.5 Encounter for screening for malignant neoplasm of prostate (principal)
CPT/HCPCS: 36415; 84153; G0103

== ENCOUNTER → 2022-05-09 | Outpatient (CLI) | payer OTHER, SELFPAY ==
[2022-05-09 10:27] LABS: Anion Gap 5 (5-15); BUN 17 mg/dL (7-18); BUN/Creat Ratio 18.2 RATIO (10-20); Chloride 105 mmol/L (98-107); Cholesterol 249 mg/dL (200); Creatinine, Serum 0.93 mg/dL (0.70-1.30); EST Glomerular Filtration Rate 88 mL/min (>60); Est Glom Filt Rate - Afr Amer 107 mL/min (>60); Glucose 165 mg/dL (74-106); High Density Lipoprotein 35 mg/dL; Potassium 3.8 mmol/L (3.5-5.1); Sodium Level 138 mmol/L (136-145); Triglycerides 404 mg/dL
== END | disposition home or self-care (01) ==
LOC: MTLAB 08:08
PROVIDERS: PCP Family Medicine; Referring Provider Family Medicine; Visit Provider Family Medicine
DX: I10 Essential (primary) hypertension (principal); E03.9 Hypothyroidism, unspecified
CPT/HCPCS: 36415; 80048; 80061; 84443

== ENCOUNTER → 2022-08-27 | Outpatient (CLI) | payer OTHER, SELFPAY ==
[2022-08-27 15:57] LABS: T4 Free Direct 1.79 ng/dL (0.76-1.46)
== END | disposition home or self-care (01) ==
PROVIDERS: PCP Family Medicine; Referring Provider Family Medicine; Visit Provider Family Medicine
DX: E03.9 Hypothyroidism, unspecified (principal)
CPT/HCPCS: 36415; 84439; 84443

== ENCOUNTER → 2023-02-26 | Outpatient (CLI) | payer OTHER, SELFPAY ==
[2023-02-26 11:03] LABS: Vitamin D,25 Hydroxy 64.9 ng/mL
[2023-02-26 11:06] LABS: AST(SGOT) 28 U/L (15-37); Alanine Aminotransfer ALT/SGPT 59 U/L (16-61); Albumin, Serum 3.8 g/dL (3.2-5.0); Alkaline Phosphatase 71 U/L (45-117); Anion Gap 7 (5-15); BUN 15 mg/dL (7-18); BUN/Creat Ratio 18.8 RATIO (10-20); Calcium,Total 9.1 mg/dL (8.5-10.1); Chloride 106 mmol/L (98-107); Cholesterol 183 mg/dL (200); EST Glomerular Filtration Rate 105 mL/min (>60); Est Glom Filt Rate - Afr Amer 127 mL/min (>60); Glucose 167 mg/dL (74-106); High Density Lipoprotein 45 mg/dL; PSA,Total - Annual Screen 3.74 ng/mL (0.00-4.00); Potassium 3.8 mmol/L (3.5-5.1); Protein, Total 7.8 g/dL (6.4-8.2); Sodium Level 138 mmol/L (136-145); Thyroid Stim Hormone (TSH) 1.03 uIU/mL (0.358-3.74); Triglycerides 194 mg/dL; Very Low Density Lipoprotein 39 mg/dL (5-40)
== END | disposition home or self-care (01) ==
LOC: MTLAB 08:50
PROVIDERS: PCP Family Medicine; Referring Provider Family Medicine; Visit Provider Family Medicine
DX: E11.65 Type 2 diabetes mellitus with hyperglycemia (principal); E55.9 Vitamin D deficiency, unspecified; E78.5 Hyperlipidemia, unspecified; Z12.5 Encounter for screening for malignant neoplasm of prostate
CPT/HCPCS: 36415; 80053; 80061; 82306; 84153; 84439; 84443; G0103

== ENCOUNTER → 2023-10-18 | Outpatient (CLI) | payer OTHER, SELFPAY ==
--- OUTSIDE RECORDS SUMMARY | 2023-10-17 10:15 | XMS RPT_ITS | CCD ---
Author Name Unknown Address [address] [place] [address] Organization [facility] Care Team Providers Care Sap Bpc Architect Name Role Phone MILO MCKEON Unavailable Unavailable MILO MCKEON Unavailable Unavailable Problems Problem Classification Problem Date Documented Da te Episodic/Chronic Unclassified (1 source) Unknown / UNK(Unknown) Onset: 04-23-2017 Results Test Name Value Interpretation Reference Range Facil ity Encounters Encounter Date Encounter Type Care Provider Facility Start: 04-23-2017 End: 04-24-[address] [facility] Summary Purpose Family History No Family History Records Found Advance Directives No Advanced Directives Records Found Additional Source Comments (unrecognized sect ion and content) No Status Records Found INFORMATION SOURCE (unrecogn ized section and content) FOR RECORDS PERTAINING TO PATIENTS WHO ARE OR HAVE BEEN ENROLLED IN A CHEMICAL DEPENDENCY/SUBSTANCEABUSE PROGRAM, SOME INFORMATION MAY BE OMITTED. This clinical summary was aggregated from multiple sources. Caution should be exercised in using it in the provision of clinical care. This summary normalizes information from multiple sources, and as a consequence, information in this document may materially change the coding, format and clinical context of patient data. In addition, data may be omitted in some cases. CLINICAL DECISIONS SHOULD BE BASED ON THE PRIMARY CLINICAL RECORDS. [employer] [facility]. provides no warranty or guarantee of the accuracy or completeness of information in this document.
[2023-10-18 13:28] LABS: Hematocrit 45.2 % (40-54); Hemoglobin 14.1 g/dL (13.0-16.5); Mean Corp Hgb Conc 31.2 g/dL (32-36); Mean Corpuscular Hgb 29.3 pg (27.0-32.0); Mean Platelet Vol. 11.4 fl (6.2-12.0); Platelet Count 238 K/mm3 (150-450); RBC Distribution Width CV 13.2 % (11.6-14.6); RBC Distribution Width SD 45.6 fl (35.1-43.9); Red Blood Count 4.81 M/mm3 (4.6-6.2); White Blood Count 8.9 K/mm3 (4.4-11.0)
[2023-10-18 13:51] LABS: AST(SGOT) 21 U/L (15-37); Alanine Aminotransfer ALT/SGPT 49 U/L (16-61); Albumin, Serum 3.8 g/dL (3.2-5.0); Alkaline Phosphatase 73 U/L (45-117); Anion Gap 4 (5-15); BUN 14 mg/dL (7-18); BUN/Creat Ratio 18.2 RATIO (10-20); Calcium,Total 9.5 mg/dL (8.5-10.1); Chloride 107 mmol/L (98-107); Creatinine, Serum 0.77 mg/dL (0.70-1.30); EST Glomerular Filtration Rate 109 mL/min (>60); Est Glom Filt Rate - Afr Amer 132 mL/min (>60); Globulin 3.9 g/dL (2.2-4.2); Glucose 134 mg/dL (74-106); Potassium 4.2 mmol/L (3.5-5.1); Protein, Total 7.7 g/dL (6.4-8.2); Sodium Level 139 mmol/L (136-145)
[2023-10-21 10:25] LABS: T4 Free Direct 1.57 ng/dL (0.76-1.46); Thyroid Stim Hormone (TSH) 0.13 uIU/mL (0.358-3.74)
== END | disposition home or self-care (01) ==
LOC: MTLAB 11:52
PROVIDERS: PCP Family Medicine; Referring Provider Family Medicine; Visit Provider Family Medicine
DX: E03.9 Hypothyroidism, unspecified (principal); E78.5 Hyperlipidemia, unspecified
CPT/HCPCS: 36415; 80053; 84439; 84443; 85027

== ENCOUNTER → 2024-04-02 | Outpatient (CLI) | payer OTHER, SELFPAY ==
--- NOTE | 2024-04-02 08:53 | RAD_ITS ---
PROCEDURE: Sniff test. DATE OF EXAMINATION: April 02, 2024. INDICATION: Male, 58 years old. Elevation of the right hemidiaphragm. FLUOROSCOPY TIME (if supplied): (15 seconds) minutes/seconds. 11.84 mGy. RAD/Fluoroscopy 1 Hr or Less IMPRESSION: Elevation of the right hemidiaphragm. There is normal translation of the right and left hemidiaphragm. Electronically Signed: Cruz Honeycutt MD at 13:45 EDT ,
== END | disposition home or self-care (01) ==
LOC: RAD 08:49
PROVIDERS: PCP Family Medicine; Referring Provider Internal Medicine Pulmonary Disease; Visit Provider Internal Medicine Pulmonary Disease
DX: R06.02 Shortness of breath (principal)
CPT/HCPCS: 76000

== ENCOUNTER → 2024-04-08 | Outpatient (CLI) | payer OTHER, SELFPAY ==
[2024-04-08 10:52] LABS: T4 Free Direct 1.49 ng/dL (0.76-1.46)
== END | disposition home or self-care (01) ==
LOC: MTLAB 08:10
PROVIDERS: PCP Family Medicine; Referring Provider Family Medicine; Visit Provider Family Medicine
DX: E03.9 Hypothyroidism, unspecified (principal)
CPT/HCPCS: 36415; 84439; 84443

== ENCOUNTER → 2024-04-17 | Outpatient (CLI) | payer OTHER, SELFPAY ==
--- NOTE | 2024-04-17 13:02 | US_ITS ---
STUDY: THYROID ULTRASOUND REASON FOR EXAM: Male, 58 years old. Abnormal thyroid function test TECHNIQUE: Ultrasound evaluation of the thyroid was performed with real-time and static grant-scale imaging. COMPARISON: None. FINDINGS: RIGHT LOBE: The right lobe of the thyroid gland measures 4.3 x 0.9 x 0.7 cm. There is a heterogeneous echotexture. There are no demonstrated solid, cystic or complex lesions. LEFT LOBE: The left lobe of the thyroid gland measures 3.9 x 1.3 x 0.9 cm. There is a heterogeneous echotexture. There are 3 separate hypoechoic solid nodules in the right lobe largest measures 1.3 x 1.0 x 0.3 cm. This nodule is solid or almost completely solid, hypoechoic, [id number], smoothly marginated and contains no echogenic foci. TI-RADS points: 4. TI-RADS category: TR4. This nodule is moderately suspicious. Recommend FNA evaluation. ISTHMUS: The isthmus measures 0.12 cm. The regional lymph nodes are normal, all measure less than 1 cm in short axis dimension. US/Thyroid IMPRESSION: Normal-sized heterogeneous thyroid gland with multiple left lobe nodules. Largest measures 1.3 x 1 x 0.3 cm and FNA is recommended for further evaluation Electronically Signed: Santo Peterson MD at 14:14 EDT ,
== END | disposition home or self-care (01) ==
LOC: US 13:01
PROVIDERS: PCP Family Medicine; Referring Provider Family Medicine; Visit Provider Family Medicine
DX: E04.9 Nontoxic goiter, unspecified (principal)
CPT/HCPCS: 76536

== ENCOUNTER → 2024-05-19 | Outpatient (CLI) | payer OTHER, SELFPAY ==
--- NOTE | 2024-05-19 | IMM_PTH ---
PATIENT: DARRYL DOS SANTOS LOC: [facility] U#:[id number] AGE/SX: 58/M ROOM: RE05/19/[address]: Dr. Tim Dunn MD : 1965 BED: DIS: 05/19/2024 SPEC #: [id number] RECD: 05/21/24 11:53 STATUS: FRANNIE REQ #: [id number] PONCHO: 05/19/24 00:[address]: Tim Dunn DEPT: IMMUNOHISTOCHEMISTRY RECD BY: Christian Duarte ENTERED: 05/21/24 11:54 SP TYPE: IMMUNO OTHR DR: Dr. Aaron Arreaga MD Tissues: A - Thyroid gland, NOS B - Thyroid gland, NOS Procedures: CD79A (initial) BCL-2 (add) CD3 (add) CD45 (add) CD5 (add) CD79A (add) CD3 (initial) PHYSICIAN & INSTITUTION [place] [address] SPECIMEN INFORMATION: Tissue Source: A- Left thyroid nodule fluid Clinical Info: Left thyroid nodule Specimen Number: [id number], CPT code: 87389j1,76656b8 METHODOLOGY: Deparaffinized sections of prefer/formalin-fixed tissue or PAP/DQ stained slides are incubated with monoclonal/polyclonal antibodies/oligonucleotide probes. Localization is made via biotin free immunoperoxidase method. Appropriate controls are performed and reacted as expected. Results on target cell population are indicated in the following table: RESULTS: ANTIBODY / CLONE RESULT Block A CD3 (PS1) positive CD5 (SP10) positive CD45 (RP2/18) positive CD79a (11E3) positive, rare cells BCL-2 (bcl-2/100/D5) positive, rare cells These tests were developed and their performance characteristics determined by [facility]. They may not have been cleared or approved by the U.S. Food and Drug Administration. The FDA has determined that such clearance or approval is not necessary. The above immunohistochemical/dualISH markers are ordered and reviewed by the Pathologist. INTERPRETATION: A. Fine needle aspiration, left thyroid fluid (cellblock): Polytypic (benign) lymphoid cells. HELIO/ 05/22/2024
--- NOTE | 2024-05-19 13:00 | FLU_PTH ---
PATIENT: DARRYL DOS SANTOS LOC: [facility] U#:[id number] AGE/SX: 58/M ROOM: RE05/19/[address]: Dr. Tim Dunn MD : 1965 BED: DIS: 05/19/2024 SPEC #: [id number] RECD: 05/19/24 15:20 STATUS: FRANNIE NOHEMI #: [id number] PONCHO: 05/19/24 13:[address]: Tim Dunn DEPT: CYTOLOGY RECD BY: Tamra Ortiz ENTERED: 05/20/24 09:16 SP TYPE: Fluid OTHR DR: Dr. Aaron Arreaga MD Tissues: A - Thyroid gland, NOS B - Thyroid gland, NOS Procedures: Special Stain Group II Surgery Specimen Level IV Cytospin Fluid Cytology Other HEADER OPERATION: Fine needle aspiration of left thyroid nodule PRE-OP DIAGNOSIS: Left thyroid nodule TISSUE SUBMITTED: Left thyroid nodule DIAGNOSIS CYTOLOGY A. Fine needle aspiration left thyroid nodule (cytospins and cellblock): Negative for malignant cells. See comment. B. Fine needle aspiration, left thyroid nodule (smears): Abundant polymorphous lymphocytes. See comment. HELIO/ 05/21/2024 COMMENT A. The specimen contains abundant polymorphous lymphocytes. Clinical correlation is suggested. Immunohistochemistry ([id number]) supports the above diagnosis. B. The specimen contains abundant polymorphous lymphocytes. Rare follicular cells are present. Clinical correlation is necessary. Immunohistochemistry ([id number]) supports the above diagnosis. [facility] report cannot be adequately applied to this case. Case has been reviewed in consultation with Dr. Schuler who concurs with the above diagnosis. IDC:SJ CYTOLOGY STUDY Slides are reviewed. CYTOLOGY GROSS A. Received is 30 ml of fluid labeled with the patient's name and and designated per the requisition as Left thyroid nodule. Submitted for cytology preparation including cell block. B. Received are 4 smears labeled with the patient's name and designated per the requisition as Left thyroid smears. Submitted for staining. Mr 05/20/2024 TC:5 CPT: 67431c7,65984
== END | disposition home or self-care (01) ==
LOC: LABSPEC 15:54
PROVIDERS: PCP Family Medicine; Referring Provider Surgery; Visit Provider Surgery
DX: E04.1 Nontoxic single thyroid nodule (principal)
CPT/HCPCS: 88108; 88161; 88305; 88313; 88341; 88342

== ENCOUNTER → 2024-11-25 | Outpatient (CLI) | payer OTHER, SELFPAY ==
--- NOTE | 2024-11-25 11:55 | US_ITS ---
PROCEDURE: THYROID REASON FOR EXAM: Follow-up for thyroid nodules. TECHNIQUE: Thyroid ultrasound COMPARISON: Comparison is made with prior study dated April 17, 2024. FINDINGS: Right thyroid lobe measures 4.4 cm x 1.3 cm x 1.2 cm. Left thyroid lobe measures 3.5 cm x 1.6 cm x 1.3 cm. Isthmus thickness is12 mm. Thyroid Size: Normal Background Echotexture: Heterogeneous Thyroid Nodules: Once again, there are 3 separate hypoechoic solid nodules in the left lobe. The largest measures 1.3 cm x 0.9 cm x 0.4 cm. This is unchanged. This has been previously biopsied. Stable 6 mm x 5 mm x 3 mm hypoechoic nodule in the superior midportion of the left lobe as well as a 7 mm x 6 mm x 4 mm hypoechoic nodule in the inferior pole. US/Thyroid IMPRESSION: Stable examination. Reading Location: [place] [address]
== END | disposition home or self-care (01) ==
LOC: US 11:55
PROVIDERS: PCP Family Medicine; Referring Provider Surgery; Visit Provider Surgery
DX: E04.1 Nontoxic single thyroid nodule (principal)
CPT/HCPCS: 76536

== ENCOUNTER → 2025-07-28 | Outpatient (CLI) | payer OTHER, SELFPAY ==
[2025-07-28 13:01] LABS: AST(SGOT) 24 U/L (<=37); Alanine Aminotransfer ALT/SGPT 42 U/L (<=46); Albumin, Serum 4.6 g/dL (3.4-4.8); Alkaline Phosphatase 92 U/L (40-129); Anion Gap 12 (5-15); BUN 23 mg/dL (4-19); BUN/Creat Ratio 32.1 RATIO (10-20); Calcium,Total 9.7 mg/dL (7.6-11.0); Carbon Dioxide 24.8 mmol/L (21.0-32.0); Chloride 102 mmol/L (98-108); Globulin 3.3 g/dL (2.2-4.2); Glucose 191 mg/dL (70-99); PSA,Total - Annual Screen 3.10 ng/mL (0.02-4.00); Potassium 5.0 mmol/L (3.3-5.1)
== END | disposition home or self-care (01) ==
LOC: MTLAB 10:04
PROVIDERS: PCP Family Medicine; Referring Provider Family Medicine; Visit Provider Family Medicine
DX: E11.65 Type 2 diabetes mellitus with hyperglycemia (principal); Z12.5 Encounter for screening for malignant neoplasm of prostate
CPT/HCPCS: 36415; 80053; 84153; 84443; G0103